=== PATIENT | male | born 1950 | race Caucasian/White ===

== ENCOUNTER 2020-04-23 08:50 | Observation (INO) | payer MEDICARE, BC ==
[~2020-04-23] VITALS: Ht 177.8 cm; Wt 152.4 kg
[2020-04-23 09:04] LABS: BASO # 0.1 (0.0-0.2); BASO % 0.9 % (0.0-2.0); EOS # 0.3 (0.0-0.7); EOS % 4.1 % (0-4.0); GRAN # 3.7 (1.4-6.5); GRAN % 48.7 % (42.2-75.2); HEMATOCRIT 38.5 % (42.0-52.0); HEMOGLOBIN 13.1 g/dl (13.5-18.0); LYMPH % 39.6 % (20.0-51.0); MEAN CELL VOLUME 95 fl (80.0-100.0); MEAN CORPUSCULAR HEMOGLOBIN 32 pg (27.0-31.0); MEAN CORPUSCULAR HGB CONC 34 g/dl (33.0-37.0); MEAN PLATELET VOLUME 9.7 fl (7.4-10.4); MONO # 0.5 (0.1-0.6); MONO % 6.4 % (1.7-9.3); PLATELET COUNT 214 K/mm3 (130-400); RED BLOOD COUNT 4.05 M/mm3 (4.20-5.60); REDCELL DISTRIBUTION WIDTH-CV 12.1 % (11.5-14.5)
[2020-04-23 09:11] LABS: INR 1.1 (0.8-3.0); PROTHROMBIN TIME 11.9 SECONDS (9.7-12.8)
[2020-04-23 09:14] LABS: PARTIAL THROMBOPLASTIN TIME 28.4 SECONDS (26.0-37.0)
[2020-04-23 09:15] LABS: ALANINE AMINOTRANSFERASE 15 U/L (4-49); ALBUMIN 4.1 gm/dL (3.5-5.0); ALKALINE PHOSPHATASE 109 U/L (50-136); ANION GAP 8 mmol/L (7-16); AST,SGOT 26 U/L (15-37); BILIRUBIN,TOTAL 0.8 mg/dL (0.0-1.0); BLOOD UREA NITROGEN 16 mg/dL (9-20); CARBON DIOXIDE 26 mmol/L (22-30); CHLORIDE 102 mmol/L (98-107); CREATININE, serum 0.88 (0.66-1.25); GLUCOSE 184 mg/dL (74-106); LIPASE 66 U/L (23-300); SODIUM 136 mmol/L (137-145); TOTAL PROTEIN 7.5 gm/dL (6.4-8.2)
[2020-04-23 09:29] LABS: TROPONIN-I < 0.012 ng/mL (0.000-0.035)
[2020-04-23 11:17] LABS: COLLECTION METHOD CLEAN CATCH
[2020-04-23 11:28] LABS: MUCOUS Present /lpf; PH 7 (5-8); SQUAMOUS EPITHELIAL 0-2 /hpf; URINE APPEARANCE Clear; URINE BACTERIA None Seen /hpf; URINE BILIRUBIN Negative (NEGATIVE); URINE BLOOD Negative (NEGATIVE); URINE COLOR Yellow; URINE GLUCOSE Negative (NEGATIVE); URINE KETONE Trace (NEGATIVE); URINE LEUKOCYTE ESTERASE Trace (NEGATIVE); URINE NITRATE Negative (NEGATIVE); URINE PROTEIN(semi-quant) 1+ (NEGATIVE); URINE RBC 0-2 /hpf; URINE UROBILINOGEN Negative (NEGATIVE)
[2020-04-23] MEDS ORDERED: PROZAC40 MG PO (11:37)
[2020-04-23] MEDS ORDERED: ZOCOR5 MG PO (11:38)
[2020-04-23] MEDS ORDERED: ASPIRIN 81M81 MG/TA2 PO (11:38)
[2020-04-23] MEDS ORDERED: ALTACE 5MG5 MG PO (15:49)
[2020-04-23] MEDS ORDERED: TYLENOL W/COD1 UDTAB PO (15:50)
[2020-04-23 16:19] LABS: MAGNESIUM 2.1 mg/dL (1.6-2.3)
[2020-04-23 16:36] LABS: TROPONIN-I < 0.012 ng/mL (0.000-0.035)
[2020-04-23 16:52] VITALS: BP 150/75; PULSE 74; TEMP 98.3
[2020-04-23 16:54] VITALS: BP 150/75; PULSE 73; TEMP 98.3
--- NOTE | 2020-04-23 18:29 | NUR ---
Patient currently resting in bed, denies pain or SOA. Patient rouses easily and is alert and oriented while awake. Patient tolerated PO intake well, denies needs at this time, call light within reach.
[2020-04-23 20:10] VITALS: BP 137/63; PULSE 88; TEMP 98.7
--- NOTE | 2020-04-23 21:00 | NUR ---
Patient has no complaints of pain. Assment done and night meds given. Told patient to call if he needed anything.
--- NOTE | 2020-04-23 22:28 | NUR ---
PATIENT DECLINED TO HAVE A PAP DEVICE FOR THE NIGHT.
[2020-04-23 23:35] VITALS: BP 143/71; PULSE 80; TEMP 98.8
[2020-04-24] VITALS (10 sets, daily range): BP systolic 131–156; BP diastolic 60–76; PULSE 16–97; TEMP 97.5–98.1
--- NOTE | 2020-04-24 06:27 | NUR ---
patient resting in bed with no complaints of pain throughout the night. Patient up to use bathroom a few times in the night.
--- NOTE | 2020-04-24 10:00 | NUR ---
Patient is doing well this am. Denies pain and nausea. Is wanting to eat but is NPO until results of lexiscan. Doppler to RLE has been completed. No other changes at this time. Patient is aware why we are waiting to feed him. No other changes at this time. Call light within reach.
--- NOTE | 2020-04-24 10:46 | NUR ---
Automotive Electrician met with the patient to complete initial intake. The patient lives in [place] with his , Yaz. The patient has a cane and walker but does not require them to ambulate. The patient has a CPAP and receives supplies from [facility]. The patient's PCP is Dr. Das and patient receives medications form [facility]. The patient does not have advanced directives and was not interested in DPOA-HC form. The patient plans to return home at discharge. The patient's daughter, Veda will transport the patient at discharge. SW contacted Yaz # to review the discharge plan of returning home, she was in agreeance. There are no additional needs at this time.
--- NOTE | 2020-04-24 11:20 | NUR ---
First visit from the corporate development associate. No needs right now.
[2020-04-24] MEDS ORDERED: NYAMYC100000 U/G TP (13:18)
--- NOTE | 2020-04-24 16:05 | NUR ---
Patient is discharging home. Discharge instructions discussed with patient, no questions verbalized. INT discontinued. Explained when follow up with his PCP. Explained that he will have to use the powder to the reddness for his panus. He verbalized understanding. All belongings packed up and sent with patient. Patient walked out via wheel chair by Rowena MANCILLA.
== END 2020-04-24 16:05 | disposition home or self-care (01) ==
LOC: COL.ER 08:50 → SURG 11:01
PROVIDERS: Emergency Medicine; Student in an Organized Health Care Education/Training Program; ADMIT Hospitalist
DX: R07.89 Other chest pain (principal); R42 Dizziness and giddiness; B37.89 Other sites of candidiasis; D64.9 Anemia, unspecified; E87.1 Hypo-osmolality and hyponatremia; R73.9 Hyperglycemia, unspecified; R80.9 Proteinuria, unspecified; E78.5 Hyperlipidemia, unspecified; G47.30 Sleep apnea, unspecified; F42.9 Obsessive-compulsive disorder, unspecified; N40.0 Benign prostatic hyperplasia without lower urinary tract symptoms; E66.9 Obesity, unspecified; Z88.8 Allergy status to other drugs, medicaments and biological substances; Z79.82 Long term (current) use of aspirin; Z88.5 Allergy status to narcotic agent; Z96.652 Presence of left artificial knee joint
CPT/HCPCS: A9500; C9113; G0008; G0378; J1650; J2405; J2785; J7030